=== PATIENT | female | born 1975 | race Two or more races ===

== ENCOUNTER 2016-08-04 20:19 | Inpatient (IN) | payer MEDICAID ==
[~2016-08-04] VITALS: Ht 170.2 cm; Wt 73.9 kg
[~2016-08-04 20:19] MED LIST: CARI250T8 PO; GLIM1TAB2 PO; GLIP-115 PO; METF-312 PO; METO25TA62 PO; PANT40T PO
[2016-08-04 20:56] LABS: Basophils # (auto) 0.1 uL; Basophils % (auto) 0.6 % (0.0-2.0); Eosinophils # (auto) 0.1 uL; Eosinophils % (auto) 1.3 % (0.0-7.0); Hematocrit 38.6 % (36.0-46.0); Hemoglobin 13.1 g/dL (12.2-16.2); Lymphocytes # (auto) 3.5 uL; Lymphocytes % (auto) 32.4 % (10.0-50.0); Mean Corpuscular Hemoglobin 31.4 pg (28.0-32.0); Mean Corpuscular Hgb Conc. 33.9 g/dL (32.0-36.0); Mean Corpuscular Volume 92.7 fL (80.0-100.0); Mean Platelet Volume 7.8 fL (7.4-10.4); Monocytes # (auto) 0.6 uL; Monocytes % (auto) 5.8 % (0.0-12.0); Neutrophils # (auto) 6.5 uL; Neutrophils % (auto) 59.9 % (37.0-80.0); Platelet Count (auto) 336 10^3/uL (140-450); Red Cell Distribution Width 13.5 % (11.6-16.0); White Blood Cell 10.8 10^3/uL (4.4-10.8)
[2016-08-04] MEDS ORDERED: SODIUM CHLORIDE 0.9% 500 ML IVB ONE (21:10)
[2016-08-04] MEDS ORDERED: PANTOPRAZOLE SODIUM 40 MG/10 ML VIAL IV STA (21:10)
[2016-08-04 21:12] LABS: BUN/Creatinine Ratio 10.8; Calcium 8.7 mg/dL (8.5-10.1)
[2016-08-04 21:15] LABS: Bilirubin, Total 0.3 mg/dL (0.2-1.0); Total Protein 7.1 g/dL (6.4-8.2)
[2016-08-04] MEDS ORDERED: PANTOPRAZOLE SODIUM 40 MG/10 ML VIAL IV ONE (21:15)
[2016-08-04] MEDS ORDERED: HYDROmorphone HCL 2 MG/ML VL IV ONE (21:15)
[2016-08-04] MEDS ORDERED: ONDANSETRON HCL 4 MG/2 ML VIAL IV ONE (21:15)
[2016-08-04 21:33] LABS: Amylase 36 U/L (25-115)
[2016-08-04] MEDS ORDERED: DOCUSATE SOD 100 MG CAP PO PRN (23:30)
[2016-08-04] MEDS ORDERED: CARISOPRODOL 350 MG TAB PO PRN (23:30)
[2016-08-04] MEDS ORDERED: HYDROcodone-ACET 5/325MG TAB PO PRN (23:30)
[2016-08-04] MEDS ORDERED: SENNA 8.6 MG TAB PO ONE (23:30)
[2016-08-04] MEDS ORDERED: DEXTROSE (50%) 50ML SYRG IV PRN (23:30)
[2016-08-04] MEDS ORDERED: FLEET ENEMA(ADULT) 135 ML PR ONE (23:30)
[2016-08-04] MEDS ORDERED: KETOROLAC TROMETH 30 MG/ML 1ML VIAL IV PRN (23:30)
[2016-08-05] VITALS (8 sets, daily range): BP systolic 101–140; BP diastolic 62–85
[2016-08-05] MEDS: ACCU-CHEK COMFORT CURVE STRIP VI SCH ×5 (00:05→23:45)
[2016-08-05 00:27] LABS: Urine RBC None Seen /hpf (0 - 4)
[2016-08-05] MEDS: ONDANSETRON HCL 4 MG/2 ML VIAL IV PRN ×3 (00:29→11:40)
[2016-08-05 00:38] LABS: Urine Bilirubin Negative (Negative); Urine Blood Negative /uL (Negative); Urine Color Yellow (Yellow); Urine Ketone Negative (Negative); Urine Nitrite Negative (Negative); Urine Squamous Epithelial Cell FEW /hpf (<5); Urine Urobilinogen Normal (Negative)
[2016-08-05 00:39] LABS: Urine Glucose 4+ mg/dL (Normal)
[2016-08-05] MEDS: ACETAMINOPHEN 325 MG TAB PO PRN ×2 (02:05→10:46)
[2016-08-05 05:48] LABS: Basophils # (auto) 0.1 uL; Basophils % (auto) 0.5 % (0.0-2.0); Eosinophils # (auto) 0.1 uL; Eosinophils % (auto) 1.1 % (0.0-7.0); Hematocrit 34.5 % (36.0-46.0); Hemoglobin 11.4 g/dL (12.2-16.2); Lymphocytes % (auto) 24.7 % (10.0-50.0); Mean Corpuscular Hemoglobin 30.6 pg (28.0-32.0); Mean Platelet Volume 8.1 fL (7.4-10.4); Monocytes # (auto) 0.6 uL; Monocytes % (auto) 4.8 % (0.0-12.0); Neutrophils # (auto) 8.4 uL; Neutrophils % (auto) 68.9 % (37.0-80.0); Platelet Count (auto) 299 10^3/uL (140-450); Red Cell Distribution Width 13.8 % (11.6-16.0); White Blood Cell 12.2 10^3/uL (4.4-10.8)
[2016-08-05] MEDS: METOCLOPRAMIDE HCL 10 MG TAB PO SCH ×4 (06:04→21:29)
[2016-08-05] MEDS: GLIMEPIRIDE 2 MG TAB PO SCH (06:05)
[2016-08-05] MEDS: glipiZIDE 5 MG TAB PO SCH (06:05)
[2016-08-05 06:11] LABS: Albumin 2.8 g/dL (3.4-5.0); BUN/Creatinine Ratio 15.7; Bilirubin, Total 0.3 mg/dL (0.2-1.0); Calcium 8.8 mg/dL (8.5-10.1); Potassium 3.9 mmol/L (3.5-5.1); Total Protein 6.4 g/dL (6.4-8.2)
[2016-08-05] MEDS: InsuLIN REG 1unit/0.01ml Soln (100units/ml) SC SCH ×5 (06:36→23:49)
[2016-08-05] MEDS: ENOXAPARIN SOD 40 MG/0.4 ML SYRINGE SC SCH (10:43)
[2016-08-05] MEDS: PANTOPRAZOLE 40 MG TAB PO SCH ×2 (10:44→21:29)
[2016-08-05] MEDS: ASPirin 81 mg TAB PO SCH (10:44)
[2016-08-05] MEDS: METOPROLOL SUCCINATE XL 50 MG TAB PO SCH (10:45)
[2016-08-05 21:17] LABS: INR 0.98 (0.9-1.15); Prothrombin Time 10.1 sec (9.37-12.3)
[2016-08-05] MEDS: SENNA 8.6 MG TAB PO SCH (21:29)
[2016-08-06 05:38] VITALS: BP 123/78
[2016-08-06] MEDS: ACCU-CHEK COMFORT CURVE STRIP VI SCH ×3 (05:38→17:31)
[2016-08-06] MEDS: InsuLIN REG 1unit/0.01ml Soln (100units/ml) SC SCH ×3 (05:44→17:27)
[2016-08-06 05:47] LABS: Basophils # (auto) 0 uL; Basophils % (auto) 0.5 % (0.0-2.0); Eosinophils # (auto) 0.2 uL; Eosinophils % (auto) 2.3 % (0.0-7.0); Hematocrit 37.2 % (36.0-46.0); Hemoglobin 12.5 g/dL (12.2-16.2); Lymphocytes # (auto) 3.7 uL; Lymphocytes % (auto) 40.9 % (10.0-50.0); Mean Corpuscular Hemoglobin 31.3 pg (28.0-32.0); Mean Corpuscular Hgb Conc. 33.5 g/dL (32.0-36.0); Mean Corpuscular Volume 93.3 fL (80.0-100.0); Mean Platelet Volume 8.1 fL (7.4-10.4); Monocytes # (auto) 0.7 uL; Monocytes % (auto) 7.2 % (0.0-12.0); Neutrophils # (auto) 4.5 uL; Neutrophils % (auto) 49.1 % (37.0-80.0); Platelet Count (auto) 301 10^3/uL (140-450); Red Cell Distribution Width 13.3 % (11.6-16.0); White Blood Cell 9.1 10^3/uL (4.4-10.8)
[2016-08-06 05:54] LABS: INR 0.99 (0.9-1.15); Prothrombin Time 10.2 sec (9.37-12.3)
[2016-08-06 06:06] LABS: Potassium 3.4 mmol/L (3.5-5.1)
[2016-08-06 06:16] LABS: BUN/Creatinine Ratio 14.9; Calcium 8.9 mg/dL (8.5-10.1); Magnesium 2.1 mg/dL (1.6-2.6)
[2016-08-06] MEDS: METOCLOPRAMIDE HCL 10 MG TAB PO SCH ×4 (06:34→21:53)
[2016-08-06] MEDS: glipiZIDE 5 MG TAB PO SCH (06:35)
[2016-08-06] MEDS: GLIMEPIRIDE 2 MG TAB PO SCH (06:36)
[2016-08-06 08:00] VITALS: BP 128/80
[2016-08-06 09:00] VITALS: BP 131/85
[2016-08-06] MEDS: ASPirin 81 mg TAB PO SCH (11:03)
[2016-08-06] MEDS: METOPROLOL SUCCINATE XL 50 MG TAB PO SCH (11:05)
[2016-08-06] MEDS: ENOXAPARIN SOD 40 MG/0.4 ML SYRINGE SC SCH (11:05)
[2016-08-06] MEDS: PANTOPRAZOLE 40 MG TAB PO SCH ×2 (11:09→21:53)
[2016-08-06] MEDS ORDERED: POTASSIUM CHL 10 Meq TABLET PO ONE (12:15)
[2016-08-06 17:00] VITALS: BP 126/77
[2016-08-06] MEDS: Boost Glucose Control 8 Ounces PO SCH ×2 (17:30→21:55)
[2016-08-06 20:00] VITALS: BP 107/60
[2016-08-06] MEDS: SENNA 8.6 MG TAB PO SCH (21:53)
[2016-08-06] MEDS: ACETAMINOPHEN 325 MG TAB PO PRN (21:59)
[2016-08-06 22:00] VITALS: BP 107/60
[2016-08-07] MEDS: ACCU-CHEK COMFORT CURVE STRIP VI SCH ×3 (00:10→11:51)
[2016-08-07] MEDS: InsuLIN REG 1unit/0.01ml Soln (100units/ml) SC SCH ×3 (00:14→11:57)
[2016-08-07 05:22] LABS: Basophils # (auto) 0 uL; Basophils % (auto) 0.5 % (0.0-2.0); Eosinophils # (auto) 0.3 uL; Eosinophils % (auto) 2.5 % (0.0-7.0); Hematocrit 37.3 % (36.0-46.0); Hemoglobin 12.5 g/dL (12.2-16.2); Lymphocytes # (auto) 3.7 uL; Lymphocytes % (auto) 35.3 % (10.0-50.0); Mean Corpuscular Hgb Conc. 33.5 g/dL (32.0-36.0); Mean Corpuscular Volume 92.5 fL (80.0-100.0); Mean Platelet Volume 7.9 fL (7.4-10.4); Monocytes # (auto) 0.7 uL; Monocytes % (auto) 6.3 % (0.0-12.0); Neutrophils # (auto) 5.7 uL; Neutrophils % (auto) 55.4 % (37.0-80.0); Platelet Count (auto) 308 10^3/uL (140-450); Red Cell Distribution Width 13.6 % (11.6-16.0); White Blood Cell 10.4 10^3/uL (4.4-10.8)
[2016-08-07 05:57] VITALS: BP 103/63
[2016-08-07 06:03] LABS: Albumin 2.8 g/dL (3.4-5.0); Bilirubin, Total 0.2 mg/dL (0.2-1.0); Calcium 9.3 mg/dL (8.5-10.1); Potassium 3.8 mmol/L (3.5-5.1); Total Protein 6.6 g/dL (6.4-8.2)
[2016-08-07] MEDS: METOCLOPRAMIDE HCL 10 MG TAB PO SCH ×2 (06:16→11:50)
[2016-08-07] MEDS: GLIMEPIRIDE 2 MG TAB PO SCH (06:16)
[2016-08-07] MEDS: glipiZIDE 5 MG TAB PO SCH (06:17)
[2016-08-07 08:00] VITALS: BP 103/63
[2016-08-07 09:27] VITALS: BP 106/76
[2016-08-07] MEDS: ASPirin 81 mg TAB PO SCH (09:57)
[2016-08-07] MEDS: PANTOPRAZOLE 40 MG TAB PO SCH (09:57)
[2016-08-07] MEDS: METOPROLOL SUCCINATE XL 50 MG TAB PO SCH (09:58)
[2016-08-07] MEDS: ENOXAPARIN SOD 40 MG/0.4 ML SYRINGE SC SCH (09:58)
[2016-08-07] MEDS ORDERED: SODIUM CHLORIDE 0.9% 1,000 ML IV SCH (11:30)
[2016-08-07] MEDS: Boost Glucose Control 8 Ounces PO SCH ×2 (11:50→12:02)
[2016-08-07 13:00] VITALS: BP 105/64
[2016-08-07 14:05] VITALS: BP 106/76
== END 2016-08-07 15:30 | disposition home or self-care (01) | DRG 48 ==
LOC: ER 20:22 → WEST WING 20:23 → TELE-WESTW 08-05 16:42
PROVIDERS: ADMIT Nurse Practitioner; ATTEND Internal Medicine
PROC: 009U3ZX Drainage of Spinal Canal, Percutaneous Approach, Diagnostic (ICD-10-PCS; principal; 2016-08-04)
DX: E11.43 Type 2 diabetes mellitus with diabetic autonomic (poly)neuropathy (principal); E43 Unspecified severe protein-calorie malnutrition; R55 Syncope and collapse; K31.84 Gastroparesis; E11.65 Type 2 diabetes mellitus with hyperglycemia; E88.09 Other disorders of plasma-protein metabolism, not elsewhere classified; I10 Essential (primary) hypertension; F17.210 Nicotine dependence, cigarettes, uncomplicated; F32.9 Major depressive disorder, single episode, unspecified; F41.9 Anxiety disorder, unspecified; F43.9 Reaction to severe stress, unspecified; K59.00 Constipation, unspecified; G43.A0 Cyclical vomiting, in migraine, not intractable; R31.9 Hematuria, unspecified; I25.2 Old myocardial infarction; Z83.3 Family history of diabetes mellitus; Z68.25 Body mass index [BMI] 25.0-25.9, adult; Z90.49 Acquired absence of other specified parts of digestive tract; Z91.010 Allergy to peanuts
CPT/HCPCS: 36415; 70450; 80048; 80053; 81001; 82150; 82962; 83690; 83735; 85025; 85610; 85730; 93005; 93306; 93886; 94761; 96361; 96374; 96375; C9113; J1815; J2405